=== PATIENT | female | born 1935 | race African-American/Black ===

== ENCOUNTER 2019-03-26 08:37 | Inpatient (IN) ==
[2019-03-26] MEDS ORDERED: HEPARIN 5,000 UNIT/1 ML VIAL SUBCUT SCH (12:30)
[2019-03-26] MEDS ORDERED: ACETAMINOPHEN 325 MG TABLET PO PRN (12:30)
[2019-03-26] MEDS ORDERED: BISACODYL 5 MG TABLET PO PRN (12:30)
[2019-03-26] MEDS ORDERED: DEXTROSE 10% 250 ML BAG IV PRN (12:30)
[2019-03-26] MEDS ORDERED: GLUCAGON 1 MG VIAL IM PRN (12:30)
[2019-03-26 12:54] LABS: Basophils % 0.5 % (0.0-0.8); Eosinophils # 0.2 10*3/uL (0.0-0.87); Eosinophils % 2.6 % (0.00-10.9); Hematocrit 37.9 VOL% (35.7-47.0); Hemoglobin 12.3 GM/DL (12.0-16.0); Immature Granulocytes % 1.1 %; Immature Granulocytes Absolute 0.09 #; Lymphocytes # 3.3 10*3/uL (1.4-4.0); Lymphocytes % 39.3 % (21.3-54.2); Mean Corpuscular HGB Conc 32.5 GM/DL (32-36); Mean Corpuscular Volume 92.9 FL (87-102); Mean Platelet Volume 10.6 FL (9.6-12.0); Monocytes % 7.7 % (1.7-12.7); Neutrophils % 48.8 % (38.7-73.9); Platelet Count 165 T/CUMM (130-400); Red Blood Count 4.08 MC/CUMM (3.8-5.5); Red Cell Distribution Width 14.2 % (9.3-17.3); White Blood Count 8.3 T/CUMM (4-12)
[2019-03-26 13:24] LABS: Alanine Aminotransferase 14 U/L (13-56); Albumin 3.4 G/DL (3.4-5.0); Alkaline Phosphatase 98 U/L (45-117); Aspartate Amino Transferase 20 U/L (0-37); Bilirubin,Total < 0.39 MG/DL (0.2-1.0); Blood Urea Nitrogen 34 MG/DL (7-18); Calcium 9.6 MG/DL (8.5-10.1); Estimated Glom Filtration Rate 5 ML/MIN; Glucose 78 MG/DL (74-106); Osmolality,Calculated 283.5 MOS/KG (273-304); Total Protein 8.7 G/DL (6.4-8.3)
[2019-03-26 13:32] LABS: Risk Ratio 4.59
[2019-03-26] MEDS ORDERED: HEPARIN DRIP 25,000 UNITS/500 ML PREMIX IV SCH (16:30)
[2019-03-26] MEDS: INSULIN LISPRO 100 UNIT/ML SUBCUT SCH ×2 (17:08→21:05)
[2019-03-26] MEDS: ASPIRIN EC 325 MG TABLET PO SCH (17:09)
[2019-03-26 19:28] LABS: Apearance,Urine CLOUDY (Clear); Bacteria,Urine Moderate /HPF (Few); Bilirubin,Urine Negative (Negative); Blood, Urine Moderate mg/dL (Negative); Glucose,Urine (UA) Negative (Negative); Ketones,Urine Negative (Negative); Mucus,Urine Few /LPF (Occasional); Nitrite,Urine Negative (Negative); Protein,Urine >=500 MG/DL; RBC,Urine 3 /HPF (0-4); Squamous Epithelial Cell,Urine Few /HPF (0-10); Urine Color Amber (Yellow); Urine Urobilinogen < 2.0 EU/DL (0.2-1.0); WBC,Urine 139 /HPF (0-6)
[2019-03-26] MEDS ORDERED: ASPIRIN EC 81 MG TABLET PO SCH (21:00)
[2019-03-26] MEDS: ATORVASTATIN 40 MG TABLET PO SCH (21:05)
[2019-03-27] MEDS ORDERED: HEPARIN 5,000 UNIT/1 ML VIAL IV ONE (02:31)
[2019-03-27] MEDS: ASPIRIN EC 325 MG TABLET PO SCH (08:16)
[2019-03-27] MEDS: INSULIN LISPRO 100 UNIT/ML SUBCUT SCH ×4 (08:16→21:31)
[2019-03-27] MEDS: PANTOPRAZOLE 40 MG TABLET PO SCH (08:16)
[2019-03-27] MEDS: cefTRIAXone 1,000 MG in SYRINGE 1 EACH IV SCH (08:17)
[2019-03-27 09:19] LABS: Basophils % 0.6 % (0.0-0.8); Eosinophils # 0.3 10*3/uL (0.0-0.87); Eosinophils % 3.8 % (0.00-10.9); Hematocrit 33.7 VOL% (35.7-47.0); Immature Granulocytes % 0.7 %; Immature Granulocytes Absolute 0.05 #; Lymphocytes # 3.3 10*3/uL (1.4-4.0); Lymphocytes % 46.5 % (21.3-54.2); Mean Corpuscular HGB Conc 32.6 GM/DL (32-36); Mean Corpuscular Volume 92.1 FL (87-102); Mean Platelet Volume 10.8 FL (9.6-12.0); Monocytes % 5.3 % (1.7-12.7); Neutrophils % 43.1 % (38.7-73.9); Platelet Count 146 T/CUMM (130-400); Red Blood Count 3.66 MC/CUMM (3.8-5.5); Red Cell Distribution Width 14.4 % (9.3-17.3); White Blood Count 7.1 T/CUMM (4-12)
[2019-03-27] MEDS: ATORVASTATIN 40 MG TABLET PO SCH (21:30)
[2019-03-27] MEDS: APIXABAN 2.5 MG TABLET PO SCH (21:32)
[2019-03-28] MEDS: INSULIN LISPRO 100 UNIT/ML SUBCUT SCH ×4 (08:01→21:11)
[2019-03-28] MEDS: cefTRIAXone 1,000 MG in SYRINGE 1 EACH IV SCH (09:09)
[2019-03-28] MEDS: amLODIPine 10 MG TABLET PO SCH (09:11)
[2019-03-28] MEDS: ASPIRIN EC 325 MG TABLET PO SCH (09:11)
[2019-03-28] MEDS: APIXABAN 2.5 MG TABLET PO SCH ×2 (09:11→21:11)
[2019-03-28] MEDS: PANTOPRAZOLE 40 MG TABLET PO SCH (09:11)
[2019-03-28] MEDS: ATORVASTATIN 40 MG TABLET PO SCH (21:10)
[2019-03-29] MEDS ORDERED: hydrALAZINE 20 MG/1 ML VIAL IV PRN ×2 (08:29→09:02)
[2019-03-29] MEDS: ASPIRIN EC 325 MG TABLET PO SCH (08:50)
[2019-03-29] MEDS: APIXABAN 2.5 MG TABLET PO SCH ×2 (08:50→21:01)
[2019-03-29] MEDS: amLODIPine 10 MG TABLET PO SCH (08:50)
[2019-03-29] MEDS: PANTOPRAZOLE 40 MG TABLET PO SCH (08:50)
[2019-03-29] MEDS: cefTRIAXone 1,000 MG in SYRINGE 1 EACH IV SCH (08:51)
[2019-03-29] MEDS: INSULIN LISPRO 100 UNIT/ML SUBCUT SCH ×4 (08:54→21:14)
[2019-03-29] MEDS: ISOSORBIDE MONONITRATE 30 MG TABLET PO SCH (12:11)
[2019-03-29 12:54] LABS: Basophils % 0.4 % (0.0-0.8); Eosinophils # 0.3 10*3/uL (0.0-0.87); Eosinophils % 3.8 % (0.00-10.9); Hematocrit 35.5 VOL% (35.7-47.0); Hemoglobin 11.5 GM/DL (12.0-16.0); Immature Granulocytes % 1.1 %; Immature Granulocytes Absolute 0.08 #; Lymphocytes # 3.5 10*3/uL (1.4-4.0); Lymphocytes % 46.3 % (21.3-54.2); Mean Corpuscular HGB Conc 32.4 GM/DL (32-36); Mean Corpuscular Volume 92.9 FL (87-102); Mean Platelet Volume 10.9 FL (9.6-12.0); Monocytes % 8.2 % (1.7-12.7); Neutrophils % 40.2 % (38.7-73.9); Platelet Count 160 T/CUMM (130-400); Red Blood Count 3.82 MC/CUMM (3.8-5.5); Red Cell Distribution Width 14.2 % (9.3-17.3); White Blood Count 7.5 T/CUMM (4-12)
[2019-03-29 13:20] LABS: Alanine Aminotransferase 16 U/L (13-56); Albumin 2.9 G/DL (3.4-5.0); Alkaline Phosphatase 94 U/L (45-117); Aspartate Amino Transferase 16 U/L (0-37); Bilirubin,Total < 0.39 MG/DL (0.2-1.0); Blood Urea Nitrogen 66 MG/DL (7-18); Estimated Glom Filtration Rate 4 ML/MIN; Glucose 118 MG/DL (74-106); Osmolality,Calculated 283.5 MOS/KG (273-304); Total Protein 7.6 G/DL (6.4-8.3)
[2019-03-29] MEDS: ATORVASTATIN 40 MG TABLET PO SCH (21:01)
[2019-03-30 04:38] LABS: Basophils # 0.1 10*3/uL (0.0-0.2); Basophils % 0.6 % (0.0-0.8); Eosinophils # 0.3 10*3/uL (0.0-0.87); Eosinophils % 4.2 % (0.00-10.9); Hematocrit 31.7 VOL% (35.7-47.0); Hemoglobin 10.1 GM/DL (12.0-16.0); Immature Granulocytes Absolute 0.08 #; Lymphocytes # 3.2 10*3/uL (1.4-4.0); Lymphocytes % 40.4 % (21.3-54.2); Mean Corpuscular HGB Conc 31.9 GM/DL (32-36); Mean Corpuscular Volume 92.2 FL (87-102); Mean Platelet Volume 11.3 FL (9.6-12.0); Neutrophils % 44.8 % (38.7-73.9); Platelet Count 151 T/CUMM (130-400); Red Blood Count 3.44 MC/CUMM (3.8-5.5); Red Cell Distribution Width 14.2 % (9.3-17.3); White Blood Count 7.8 T/CUMM (4-12)
[2019-03-30 04:58] LABS: Calcium 8.1 MG/DL (8.5-10.1); Osmolality,Calculated 295.8 MOS/KG (273-304)
[2019-03-30] MEDS: ISOSORBIDE MONONITRATE 30 MG TABLET PO SCH (09:47)
[2019-03-30] MEDS: amLODIPine 10 MG TABLET PO SCH (09:47)
[2019-03-30] MEDS: cefTRIAXone 1,000 MG in SYRINGE 1 EACH IV SCH (09:48)
[2019-03-30] MEDS: PANTOPRAZOLE 40 MG TABLET PO SCH (09:48)
[2019-03-30] MEDS: APIXABAN 2.5 MG TABLET PO SCH ×2 (09:48→21:18)
[2019-03-30] MEDS: ASPIRIN EC 325 MG TABLET PO SCH (09:48)
[2019-03-30] MEDS: INSULIN LISPRO 100 UNIT/ML SUBCUT SCH ×4 (09:49→22:22)
[2019-03-30] MEDS ORDERED: ceFAZolin 1,000 MG in SYRINGE 1 EACH IV ONE (09:58)
[2019-03-30] MEDS ORDERED: TISSUE ADHESIVE 1 EACH APPLICATOR TOP ONE (11:48)
[2019-03-30] MEDS ORDERED: LIDOCAINE 1%/EPI INJ 20 ML VIAL ONE (11:48)
[2019-03-30] MEDS ORDERED: ceFAZolin 1,000 MG VIAL ONE (12:32)
[2019-03-30] MEDS: ATORVASTATIN 40 MG TABLET PO SCH (21:18)
[2019-03-31 11:48] VITALS: BP 178/88
[2019-03-31] MEDS: INSULIN LISPRO 100 UNIT/ML SUBCUT SCH ×2 (14:03→14:04)
[2019-03-31] MEDS: cefTRIAXone 1,000 MG in SYRINGE 1 EACH IV SCH (14:04)
[2019-03-31] MEDS: ASPIRIN EC 325 MG TABLET PO SCH (14:05)
[2019-03-31] MEDS: ISOSORBIDE MONONITRATE 30 MG TABLET PO SCH (14:05)
[2019-03-31] MEDS: PANTOPRAZOLE 40 MG TABLET PO SCH (14:05)
[2019-03-31] MEDS: APIXABAN 2.5 MG TABLET PO SCH (14:05)
[2019-03-31] MEDS: amLODIPine 10 MG TABLET PO SCH (14:05)
== END 2019-03-31 16:36 | DRG 40 ==
LOC: N.TELES → SUATTDRO 10:07
PROVIDERS: ADMIT Internal Medicine; ATTEND Internal Medicine

== ENCOUNTER 2020-08-23 10:34 | Inpatient (IN) ==
[2020-08-23] MEDS ORDERED: DIAZEPAM 5 MG TABLET PO ONE (11:00)
[2020-08-23] MEDS ORDERED: diphenhydrAMINE CAP 50 MG CAPSULE PO ONE (11:00)
[2020-08-23] MEDS ORDERED: VANCOMYCIN INJ 1,000 MG in SODIUM CHLORIDE 0.9% 250 ML IV ONE (11:00)
[2020-08-23] MEDS ORDERED: VANCOMYCIN 500 MG VIAL IRRIG ONE (11:00)
[2020-08-23 11:19] LABS: Basophils # 0.1 10*3/uL (0.0-0.2); Basophils % 0.6 % (0.0-0.8); Eosinophils # 0.4 10*3/uL (0.0-0.87); Eosinophils % 3.7 % (0.00-10.9); Hematocrit 31.1 VOL% (35.7-47.0); Hemoglobin 9.7 GM/DL (12.0-16.0); Immature Granulocytes % 1.1 %; Immature Granulocytes Absolute 0.11 #; Lymphocytes # 3.1 10*3/uL (1.4-4.0); Lymphocytes % 31.7 % (21.3-54.2); Mean Corpuscular HGB Conc 31.2 GM/DL (32-36); Mean Corpuscular Volume 96.9 FL (87-102); Mean Platelet Volume 9.9 FL (9.6-12.0); Monocytes % 7.2 % (1.7-12.7); Neutrophils % 55.7 % (38.7-73.9); Platelet Count 273 T/CUMM (130-400); Red Blood Count 3.21 MC/CUMM (3.8-5.5); Red Cell Distribution Width 14.6 % (9.3-17.3); White Blood Count 9.7 T/CUMM (4-12)
[2020-08-23] MEDS ORDERED: DIAZEPAM 5 MG TABLET ONE (11:31)
[2020-08-23] MEDS ORDERED: diphenhydrAMINE CAP 50 MG CAPSULE ONE (11:31)
[2020-08-23 11:47] LABS: Calcium 9.3 MG/DL (8.5-10.1); Osmolality,Calculated 278.1 MOS/KG (273-304); Potassium 4.4 MMOL/L (3.5-5.1)
[2020-08-23] MEDS ORDERED: LIDOCAINE 1% 20 ML VIAL ONE (13:31)
[2020-08-23] MEDS ORDERED: TISSUE ADHESIVE 1 EACH APPLICATOR TOP ONE (13:31)
[2020-08-23] MEDS ORDERED: HEPARIN/NACL 0.9% 2 UNITS/ML 500 ML IV ONE (13:32)
[2020-08-23] MEDS ORDERED: VANCOMYCIN 1,000 MG VIAL ONE (13:33)
[2020-08-23] MEDS ORDERED: VANCOMYCIN 500 MG VIAL ONE (13:33)
[2020-08-23] MEDS ORDERED: fentaNYL 100 MCG/2 ML VIAL ONE (13:44)
[2020-08-23] MEDS ORDERED: MIDAZOLAM 2 MG/2 ML VIAL ONE (13:44)
[2020-08-23] MEDS: APIXABAN 2.5 MG TABLET PO SCH (21:45)
[2020-08-23] MEDS: ATORVASTATIN 40 MG TABLET PO SCH (21:45)
[2020-08-24 06:35] LABS: Basophils # 0.1 10*3/uL (0.0-0.2); Basophils % 0.7 % (0.0-0.8); Eosinophils # 0.4 10*3/uL (0.0-0.87); Hematocrit 31.1 VOL% (35.7-47.0); Hemoglobin 10.1 GM/DL (12.0-16.0); Immature Granulocytes % 0.9 %; Immature Granulocytes Absolute 0.08 #; Lymphocytes % 34.7 % (21.3-54.2); Mean Corpuscular HGB Conc 32.5 GM/DL (32-36); Mean Corpuscular Volume 94.8 FL (87-102); Monocytes % 7.9 % (1.7-12.7); NRBC # 0.02 10*3/uL; Neutrophils % 51.8 % (38.7-73.9); Red Blood Count 3.28 MC/CUMM (3.8-5.5); Red Cell Distribution Width 14.8 % (9.3-17.3); White Blood Count 8.8 T/CUMM (4-12)
[2020-08-24 06:36] LABS: Platelet Count 182 T/CUMM (130-400)
[2020-08-24 06:43] LABS: Calcium 7.1 MG/DL (8.5-10.1); Osmolality,Calculated 271.2 MOS/KG (273-304)
[2020-08-24] MEDS ORDERED: DOXAZOSIN 4 MG TABLET PO SCH (09:00)
[2020-08-24] MEDS: GLIMEPIRIDE 2 MG TABLET PO SCH (09:13)
[2020-08-24] MEDS: PANTOPRAZOLE 40 MG TABLET PO SCH (09:14)
[2020-08-24] MEDS: LOSARTAN 50 MG TABLET PO SCH (09:14)
[2020-08-24] MEDS: ISOSORBIDE MONONITRATE 30 MG TABLET PO SCH (09:14)
[2020-08-24] MEDS: APIXABAN 2.5 MG TABLET PO SCH ×2 (09:14→20:11)
[2020-08-24] MEDS: amLODIPine 10 MG TABLET PO SCH (09:14)
[2020-08-24] MEDS: TIMOLOL 0.5% OPH SOLN 5 ML BOTTLE BOTH EYES SCH (09:16)
[2020-08-24] MEDS: ATORVASTATIN 40 MG TABLET PO SCH (20:11)
[2020-08-25 05:15] LABS: Basophils # 0.1 10*3/uL (0.0-0.2); Basophils % 0.6 % (0.0-0.8); Eosinophils # 0.4 10*3/uL (0.0-0.87); Hematocrit 30.4 VOL% (35.7-47.0); Hemoglobin 9.8 GM/DL (12.0-16.0); Immature Granulocytes % 1.4 %; Immature Granulocytes Absolute 0.11 #; Lymphocytes # 2.5 10*3/uL (1.4-4.0); Lymphocytes % 31.8 % (21.3-54.2); Mean Corpuscular HGB Conc 32.2 GM/DL (32-36); Mean Corpuscular Volume 94.4 FL (87-102); Mean Platelet Volume 9.6 FL (9.6-12.0); Monocytes % 7.6 % (1.7-12.7); Neutrophils % 53.6 % (38.7-73.9); Platelet Count 218 T/CUMM (130-400); Red Blood Count 3.22 MC/CUMM (3.8-5.5); Red Cell Distribution Width 14.7 % (9.3-17.3)
[2020-08-25 05:38] LABS: Calcium 8.9 MG/DL (8.5-10.1); Osmolality,Calculated 275.1 MOS/KG (273-304)
[2020-08-25] MEDS: GLIMEPIRIDE 2 MG TABLET PO SCH (08:37)
[2020-08-25] MEDS: APIXABAN 2.5 MG TABLET PO SCH ×2 (09:18→20:46)
[2020-08-25] MEDS: PANTOPRAZOLE 40 MG TABLET PO SCH (09:18)
[2020-08-25] MEDS: ISOSORBIDE MONONITRATE 30 MG TABLET PO SCH (09:18)
[2020-08-25] MEDS: LOSARTAN 50 MG TABLET PO SCH (09:19)
[2020-08-25] MEDS: TIMOLOL 0.5% OPH SOLN 5 ML BOTTLE BOTH EYES SCH (09:19)
[2020-08-25] MEDS: traMADol 50 MG TABLET PO PRN ×2 (11:24→22:13)
[2020-08-25] MEDS: amLODIPine 10 MG TABLET PO SCH (13:05)
[2020-08-25] MEDS: ATORVASTATIN 40 MG TABLET PO SCH (20:46)
[2020-08-25] MEDS: AMITRIPTYLINE 10 MG TABLET PO SCH (20:46)
[2020-08-26] MEDS: TIMOLOL 0.5% OPH SOLN 5 ML BOTTLE BOTH EYES SCH (09:23)
[2020-08-26] MEDS: GABAPENTIN 100 MG CAPSULE PO SCH ×4 (13:55→21:19)
[2020-08-26] MEDS: ISOSORBIDE MONONITRATE 30 MG TABLET PO SCH (13:57)
[2020-08-26] MEDS: PANTOPRAZOLE 40 MG TABLET PO SCH (13:57)
[2020-08-26] MEDS: GLIMEPIRIDE 2 MG TABLET PO SCH (13:57)
[2020-08-26] MEDS: amLODIPine 10 MG TABLET PO SCH (13:58)
[2020-08-26] MEDS: LOSARTAN 50 MG TABLET PO SCH (13:58)
[2020-08-26] MEDS: APIXABAN 2.5 MG TABLET PO SCH ×2 (13:58→21:19)
[2020-08-26] MEDS: AMITRIPTYLINE 10 MG TABLET PO SCH (21:18)
[2020-08-26] MEDS: ATORVASTATIN 40 MG TABLET PO SCH (21:19)
[2020-08-27] MEDS: PANTOPRAZOLE 40 MG TABLET PO SCH (09:32)
[2020-08-27] MEDS: GLIMEPIRIDE 2 MG TABLET PO SCH (09:32)
[2020-08-27] MEDS: LOSARTAN 50 MG TABLET PO SCH (09:32)
[2020-08-27] MEDS: APIXABAN 2.5 MG TABLET PO SCH ×2 (09:32→21:24)
[2020-08-27] MEDS: GABAPENTIN 100 MG CAPSULE PO SCH ×3 (09:32→21:24)
[2020-08-27] MEDS: ISOSORBIDE MONONITRATE 30 MG TABLET PO SCH (09:33)
[2020-08-27] MEDS: TIMOLOL 0.5% OPH SOLN 5 ML BOTTLE BOTH EYES SCH (09:33)
[2020-08-27] MEDS: traMADol 50 MG TABLET PO PRN (19:56)
[2020-08-27] MEDS: ATORVASTATIN 40 MG TABLET PO SCH (21:24)
[2020-08-27] MEDS: AMITRIPTYLINE 10 MG TABLET PO SCH (21:24)
[2020-08-28 06:50] LABS: Basophils % 0.4 % (0.0-0.8); Eosinophils # 0.3 10*3/uL (0.0-0.87); Eosinophils % 3.4 % (0.00-10.9); Hematocrit 30.2 VOL% (35.7-47.0); Hemoglobin 9.6 GM/DL (12.0-16.0); Immature Granulocytes % 0.9 %; Immature Granulocytes Absolute 0.09 #; Lymphocytes # 2.9 10*3/uL (1.4-4.0); Lymphocytes % 28.6 % (21.3-54.2); Mean Corpuscular HGB Conc 31.8 GM/DL (32-36); Mean Corpuscular Volume 93.5 FL (87-102); Mean Platelet Volume 9.5 FL (9.6-12.0); Monocytes % 10.8 % (1.7-12.7); Neutrophils % 55.9 % (38.7-73.9); Platelet Count 233 T/CUMM (130-400); Red Blood Count 3.23 MC/CUMM (3.8-5.5); Red Cell Distribution Width 14.5 % (9.3-17.3); White Blood Count 10.1 T/CUMM (4-12)
[2020-08-28 07:08] LABS: Calcium 8.8 MG/DL (8.5-10.1); Osmolality,Calculated 268.9 MOS/KG (273-304); Potassium 4.7 MMOL/L (3.5-5.1)
[2020-08-28] MEDS ORDERED: amLODIPine 2.5 MG TABLET PO SCH (09:00)
[2020-08-28] MEDS: GLIMEPIRIDE 2 MG TABLET PO SCH (09:04)
[2020-08-28] MEDS: ISOSORBIDE MONONITRATE 30 MG TABLET PO SCH (09:16)
[2020-08-28] MEDS: GABAPENTIN 100 MG CAPSULE PO SCH ×2 (09:16→15:19)
[2020-08-28] MEDS: APIXABAN 2.5 MG TABLET PO SCH (09:16)
[2020-08-28] MEDS: LOSARTAN 50 MG TABLET PO SCH (09:17)
[2020-08-28] MEDS: TIMOLOL 0.5% OPH SOLN 5 ML BOTTLE BOTH EYES SCH (09:17)
[2020-08-28] MEDS: PANTOPRAZOLE 40 MG TABLET PO SCH (09:19)
[2020-08-28] MEDS ORDERED: LEVOFLOXACIN 500 MG TABLET PO SCH (10:52)
[2020-08-28] MEDS ORDERED: LEVOFLOXACIN 500 MG TABLET PO ONE (11:30)
[2020-08-28 12:18] VITALS: BP 102/55
[2020-08-30] MEDS ORDERED: LEVOFLOXACIN 250 MG TABLET PO SCH (11:30)
== END 2020-08-28 15:45 | DRG 260 ==
LOC: N.CL 10:34 → N.TELEN 14:41
PROVIDERS: ADMIT Internal Medicine Cardiovascular Disease; ATTEND Internal Medicine Cardiovascular Disease